=== PATIENT | female | born 1960 | race Caucasian/White ===

== ENCOUNTER 2018-10-31 17:41 | Observation (INO) ==
[2018-10-31] MEDS ORDERED: Naloxone 0.4 MG/ML INJ IVP PRN (22:55)
--- NOTE | 2018-10-31 23:25 | Internal Med History&Physical ---
Date of Encounter: 10/31/18 Time of Encounter: 22:00 Internal Medicine - H&P: HPI Chief complaint: CP Admitted From: Intrahospital Transfer Plans for Post Hospital Care: Home History of present illness: Ms. Gray is a 58 year old female w/PMH of melanoma of the skin, cervical cancer hx, previous HTN (no longer on medications), Crohn's disease, fatty liver, sleep apnea (but not on BiPAP or CPAP), and seasonal allergies presents from [place] [facility] w/CC of chest discomfort that began on Wednesday when she was playing soccer w/granddaughter. Pt. describes discomfort as shooting dull pain across her chest that came on w/and w/o exertion. Pain was intermittent and no alleviating factors. Accompanying sx: SOB. Radiation to central back and left neck. Pain worse on Wednesday than today. Reports last cardiac w/u was an exerci se stress test in 2009. Reports extensive familial hx of CAD. Denies previous OR, stents, nausea, vomiting, diaphoresis, sick contacts, history of PE or DVT, headache, changes in vision, unusual bleeding, abdominal pain, diarrhea, constipation, numbness, tingling, dizziness, lightheadedness, pre-syncope, or syncope. Past Med Surg Social Fam HX - Past Medical History Source: patient, old records reviewed, obtained from family Medical history: cancer (Melanoma of skin and cervical cancer), hypertension (Pr evious HTN - Reports she no longer takes HTN medications), other Additional medical history: Melanoma, cervical cancer, Crohn's disease, sleep apnea, fatty liver disease, seasonal allergies Psychiatric history: no psych history - Past Surgical History Surgical History: appendectomy, breast surgery, cholecystectomy, colectomy, hysterectomy Additional surgical history: Bowel resection x2, breast reduction, laminecty L4, tonsilectomy - Social History Smoking Status: Current every day smoker Packs per day: VAPES - Reports quitting 1.5 PPD of cigarettes in 2012 Smokeless Tobacco Status: No Alcohol use: rarely Drug use: none Current living situation: Home, With Family Activity Level: Independent ambulation Recent Out of Country Travel Within the Last 8 Weeks: No Exposure or Possible Exposure to Illness During Travel: No - Family History Mother Race: Family Member Ethnicity: Non- Living Status: Still Living Hx Family Cardiac Disorders: Yes (OR, cardiac stents x7, HTN) Hx Family Endocrine Disorder: Yes (DM) Hx Family Medical Disorders: Yes (Kidney disease) Brother Race: Family Member Ethnicity: Non- Living Status: Still Living Hx Family Cardiac Disorders: Yes (OR w/ stents) Hx Family Endocrine Disorder: Yes (DM) Father Race: Family Member Ethnicity: Non- Living Status: Age at : 79 Cause of : Endocarditis Hx Family Cardiac Disorders: Yes Hx Family Cancer: Yes (Whipple procedure) Hx Family Medical Disorders: Yes (Genetic disorder-aortic valve dysfunction) Internal Medicine - H&P: Meds Calcium Carbonate/Vitamin D3 [Calcium 1,000 + D3 Caplet] 1 each PO DAILY 10/31/18 [History] Cetirizine HCl [Zyrtec] 10 mg PO DAILY 10/31/18 [History] Cholecalciferol (Vitamin D3) [Vitamin D] 1,000 unit PO DAILY 10/31/18 [History] Magnesium 250 mg PO DAILY 10/31/18 [History] Mesalamine [Lialda] 4.8 gm PO DAILY 10/31/18 [History] Triamcinolone Acetonide [Nasacort] 1 spr NS QDPC PRN 10/31/18 [History] Allergy/AdvReac Type Severity Reaction Status Date / Time No Known Allergies Allergy Verified 10/31/18 15:37 All Systems PM: A 10-system review of systems was performed and is negative for pertinent findings except as documented above in the HPI. - Constitutional Constitutional: as per HPI, no chills, no fever(s), no night sweats - EENT Eyes: no change in vision, no discharge, no pain, no photophobia Ears: no ear discharge, no ear pain, no tinnitus Nose, mouth and throat: no dysphagia, no nasal discharge, no neck pain, no sore throat - Breasts Breasts: as per HPI - Cardiovascular Cardiovascular ROS IM: as per HPI, chest pain, dyspnea, dyspnea on exertion, no diaphoresis, no lightheadedness, no palpitations, no syncope - Respiratory Respiratory: as per HPI, dyspnea, dyspnea on exertion, no cough, no wheezing, no excessive phlegm production - Gastrointestinal Gastrointestinal: as per HPI, no abdominal pain, no diarrhea, no hematemesis, no hematochezia, no melena, no nausea, no vomiting - Genitourinary Genitourinary: no change in urinary stream, no dysuria, no flank pain, no hematuria Menstruation: as per HPI, post hysterectomy (Partial) - Musculoskeletal Musculoskeletal ROS IM: no numbness, no tingling - Integumentary Integumentary IM: no rash, no unusual bruising - Neurological Neurological ROS: as per HPI, no confusion, no convulsions, no focal weakness, no numbness, no tingling, no tremor(s) - Psychiatric Psychiatric: as per HPI - Endocrine Endocrine IM: as per HPI - Hematologic/Lymphatic Hematologic/Lymphatic: no easy bruising - Allergic/Immunologic Allergic/Immunologic: as per HPI - Constitutional Vitals: Temp Pulse Resp BP Pulse Ox 97.4 F L 74 15 134/82 95 10/31/18 19:17 10/31/18 19:17 10/31/18 19:17 10/31/18 19:17 10/31/18 19:17 General appearance: Present: cooperative, mild distress, A&O X 3, pleasant, answers questions appropriately Exam: Patient examined at bedside. Pt. resting in bed and reports no chest discomfort at this time. Pt. states that when the chest discomfort starts, it radiates to the central back as well. No alleviating factors as it comes on w/and w/o exertion. Pt. denies any other complaints at this time. VS at the time: temp 97.7F, HR 79, RR 16, BP 141/85, and SpO2 95% on RA. - Head Head exam: Present: atraumatic, normocephalic - Eye Eye exam: Present: PERRL, conjuntiva pink, sclera anicteric Pupils: Present: PERRL - ENT ENT exam: Present: mucous membranes dry, normal exam - Neck Neck exam general surgery: Present: normal inspection, supple, trachea midline. Absent: lymphadenopathy - Respiratory Respiratory exam: Present: CTAB. Absent: accessory muscle use, rales, rhonchi, wheezes - Cardiovascular Cardiovascular exam: Present: RRR, +S1, +S2. Absent: diastolic murmur, gallop, rubs, systolic murmur - GI/Abdominal GI/Abdominal exam: Present: normal bowel sounds, soft, no peritoneal signs. Absent: distended, tenderness - Rectal Rectal exam: Present: deferred - Additional comments: exam deferred. - Extremities Exam Extremities exam: Present: warm, radial pulses palpable and symmetrical. Absent: calf tenderness, cyanotic, pedal edema - Back Exam Back exam: Present: normal inspection - Neurological Exam Neurological exam: Present: alert, CN II-XII intact, oriented X3, no focal deficits. Absent: pronater drift, facial droop, speech deficit - Psychiatric Psychiatric exam: Present: normal affect, normal mood - Skin Skin exam: Present: dry, intact Internal Med - H&P Results - EKG Data EKG shows normal: sinus rhythm - EKG Data Prior EKG available for review: no EKG comments: 11/01/18 00:34 EKG dated 10/31/18 shows sinus rhythm. - Diagnostic Studies Chest x-ray Additional comments: cc: Eulalio Sethi; Bruce Smith; ~ EXAMINATION: SINGLE XRAY VIEW OF THE CHEST 10/31/2018 4:21 pm COMPARISON: None. HISTORY: ORDERING SYSTEM PROVIDED HISTORY: chest pain FINDINGS: Mediastinum: Normal heart size and mediastinal contours. Calcified right paratracheal lymph node/lymph nodes. Lungs: Normal lung volumes. No pneumothorax or airspace consolidation. Pleura: No pleural effusion or thickening. Musculoskeletal: No acute osseous abnormality. Unremarkable soft tissues. Upper Abdomen: Included upper abdomen is unremarkable. XR/XR chest 1V portable IMPRESSION: No acute findings. Evidence of remote granulomatous disease. D/ / Grant Rooney / Grant Rooney Interpreting Provider: Grant Rooney - Assessment and Plan (1) Chest pain Current Visit: Yes Status: Acute Assessment and plan: Acute chest discomfort that began on Wednesday when she was playing soccer w/granddaughter. Pt. describes discomfort as shooting dull pain across her chest that came on w/and w/o exertion. Pain was intermittent and no alleviating factors. Accompanying sx: SOB. Radiation to central back and left neck. Pain worse on Wednesday than today. Reports last cardiac w/u was an exercise stress test in 2009. Reports extensive familial hx of CAD. Denies previous OR, stents. Familial hx: mother Mi x2, 7 stents, HTN; father aortic valve replacement and congential aortic anomaly; brother 99% blockage and OR. Initial troponin <0.03. Trending. Pt. took ASA at home. 80 mg Lipitor once. SL nitro PRN. Morphine 2 mg IVP Q4HR PRN for CP. Echocardiogram. NPO at midnight for exercise stress test in a.m. if troponins WNL. Consider Cardiology consult if troponins, echocardiogram, and/or stress test results abnormal. Pt. is high risk for cardiac event and further morbidity d/t current CP that presents w/and w/o exertion, previous tobacco use (1.5 PPD) and current vaping, and extensive familial cardiac hx and risk factors. Observation. Qualifiers: Chest pain type: precordial pain Qualified Code(s): R07.2 - Precordial pain (2) SOB (shortness of breath) Current Visit: Yes Status: Acute Assessment and plan: Acute SOB accompanying chest discomfort sx. Pt. denies home O2 use. No COPD or CHF dx. Supplemental O2 w/titration and SpO2 monitoring. (3) Sleep apnea Current Visit: Yes Status: Chronic Assessment and plan: Hx of chronic sleep apnea. Pt. reports dx but does not currently use BiPAP or CPAP. Supplemental O2 w/titration and SpO2 monitoring. Qualifiers: Sleep apnea type: unspecified type Qualified Code(s): G47.30 - Sleep apnea, unspecified (4) Crohns disease Current Visit: Yes Status: Chronic Assessment and plan: Hx of chronic Crohn's disease. Stable and currently not in exacerbation. Monitor. Qualifiers: Gastrointestinal tract location: unspecified location Digestive disease complication type: unspecified complication Qualified Code(s): K50.919 - Crohn's disease, unspecified, with unspecified complications (5) Seasonal allergic rhinitis Current Visit: Yes Status: Chronic Assessment and plan: Hx of chronic seasonal allergies. Continue pts. PO allergy medication. Qualifiers: Allergic rhinitis trigger: other Qualified Code(s): J30.89 - Other allergic rhinitis (6) Cancer Current Visit: Yes Status: Resolved Assessment and plan: Hx of melanoma skin cancer and cervical cancer. Stable. F/u w/PCP as needed as OP. (7) DVT prophylaxis Current Visit: Yes Status: Acute Assessment and plan: Heparin 5,000 units SQ Q8HR for DVT prophylaxis. Monitor pt. for signs of bleeding. - Time Spent With Patient Total time spent is greater than 50% in coordination of care (as documented) at patient's floor/unit and/or counseling patient: Greater than 35 minutes
[2018-10-31] MEDS ORDERED: Isovue-370 500 ML BOTTLE IVP ONE (23:45)
[2018-10-31] MEDS ORDERED: Acetaminophen 325 MG TABLET PO PRN (23:51)
[2018-10-31] MEDS ORDERED: *HR* Promethazine 25 MG/ML VIAL IVP PRN (23:52)
[2018-10-31] MEDS ORDERED: traMADol 50 MG TABLET PO PRN (23:52)
[2018-11-01] MEDS ORDERED: *HR* Morphine 2 MG/ML SYRINGE IVP PRN (01:01)
[2018-11-01] MEDS ORDERED: Nitroglycerin 0.4 MG TAB.SUBL SL PRN (01:01)
[2018-11-01 05:41] LABS: Hematocrit 38.3 % (35.3-44.9); Hemoglobin 12.3 g/dL (11.5-15.4); Mean Corpuscular HGB Conc 32.1 g/dL (31.6-35.5); Mean Corpuscular Hemoglobin 29.6 pg (28.0-33.3); Mean Corpuscular Volume 92.1 fL (83.0-100.0); Mean Platelet Volume 9.5 fL (9.4-12.4); Platelet Count 198 K/mcL (140-400); Red Blood Count 4.16 M/mcL (3.82-4.97); Red Cell Distribution Width 13.1 % (11.5-14.5)
[2018-11-01 05:58] LABS: BUN/Creatinine Ratio 13 (6-26); Blood Urea Nitrogen 9 mg/dL (6-20); Calcium 8.8 mg/dL (8.6-10.3); Carbon Dioxide 24 mEq/L (23-29); Chloride 109 mEq/L (98-107); Chol/HDL Ratio 2.6 (0-4.9); Cholesterol 138 mg/dL (< 200); Glucose 106 mg/dL (70-105); HDL Cholesterol 53 mg/dL (40-59); LDL Cholesterol,Calculated 36 mg/dL (0-99); Osmolality,Calculated 295 (280-300); Potassium 3.8 mEq/L (3.5-5.1); Sodium 143 mEq/L (136-145); Triglycerides 246 mg/dL (< 150); eGFR For Non-African Americans > 60 (> 60)
[2018-11-01 06:10] LABS: Thyroid Stimulating Hormone 1.889 mcIU/mL (0.340-5.600)
[2018-11-01] MEDS: *HR* Heparin 5,000 UNIT/ML VIAL SQ SCH ×2 (06:20→14:12)
[2018-11-01] MEDS ORDERED: Cholecalciferol (D-3) 1,000 UNIT TABLET PO SCH (09:00)
[2018-11-01] MEDS ORDERED: Magnesium Oxide 400 MG TABLET PO SCH (09:00)
[2018-11-01] MEDS ORDERED: Loratadine 10 MG TABLET PO SCH (09:00)
[2018-11-01 11:17] VITALS: BP 138/83
--- NOTE | 2018-11-01 14:35 | Discharge Summary ---
- NOTES TO OUTPATIENT PROVIDER Notes to Outpatient Provider: Presented with chest pain underwent cardiac stress test which was negative for any ischemia or infarct suspect musculoskeletal Orders not resulted at time of discharge: Pending orders 11/01/18 06:11 NM ruben perf SPECT multi [NM] Routine 11/02/18 04:00 Basic Metabolic Panel AM 0400 Complete Blood Count w/o Diff [HEME] AM 0400 11/03/18 04:00 Basic Metabolic Panel AM 0400 Complete Blood Count w/o Diff [HEME] AM 0400 Date of Encounter: 11/01/18 Time of Encounter: 14:35 - Discharge Diagnosis (1) Chest pain Priority: Primary Status: Acute Qualifiers: Chest pain type: precordial pain Qualified Code(s): R07.2 - Precordial pain (2) SOB (shortness of breath) Priority: Secondary Status: Acute (3) Cancer Priority: Secondary Status: Resolved (4) Sleep apnea Priority: Secondary Status: Chronic Qualifiers: Sleep apnea type: unspecified type Qualified Code(s): G47.30 - Sleep apnea, unspecified (5) Crohns disease Priority: Secondary Status: Chronic Qualifiers: Gastrointestinal tract location: unspecified location Digestive disease complication type: unspecified complication Qualified Code(s): K50.919 - Crohn's disease, unspecified, with unspecified complications (6) Seasonal allergic rhinitis Priority: Secondary Status: Chronic Qualifiers: Allergic rhinitis trigger: other Qualified Code(s): J30.89 - Other allergic rhinitis Hospital course: Ms. Gray is a 58 year old female past medical history of melanoma the skin several cancerous previous hypertension and oral medication Crohn's disease by liver sleep apnea [place] BiPAP or oxygen seasonal allergies presented with [facility] with complaints of chest discomfort began on Wednesday when she was playing soccer with her granddaughter. Chest pain was with on exertion. Was intermittent with no relieving factors she has shortness of breath pain radiates to back and left neck. CTA was completed which was a for any PE troponins negative 3 echocardiogram with EF-65% and of a cardiac stress test was negative for any ischemia or infarct. Patient has been pain-free during this admission EKG with no ST-T wave abnormalities advised patient follow-up with primary care provider suspect musculoskeletal. Patient verbalized understanding she is hemodynamically stable and ready for discharge. - Time Spent with Patient Total time spent providing and/or coordinating discharge services: - Discharge Medications Prescriptions: Continued Triamcinolone Acetonide [Nasacort] 1 spr NS QDPC PRN PRN Reason: Allergy Symptoms Magnesium 250 mg PO DAILY Cholecalciferol (Vitamin D3) [Vitamin D3] 1,000 unit PO DAILY Calcium Carbonate/Vitamin D3 [Calcium 1,000 + D3 Caplet] 1 each PO DAILY Cetirizine HCl [Zyrtec] 10 mg PO DAILY Mesalamine [Lialda] 4.8 gm PO DAILY Home Medications: Calcium Carbonate/Vitamin D3 [Calcium 1,000 + D3 Caplet] 1 each PO DAILY 10/31/18 [History] Cetirizine HCl [Zyrtec] 10 mg PO DAILY 10/31/18 [History] Cholecalciferol (Vitamin D3) [Vitamin D3] 1,000 unit PO DAILY 10/31/18 [History] Magnesium 250 mg PO DAILY 10/31/18 [History] Mesalamine [Lialda] 4.8 gm PO DAILY 10/31/18 [History] Triamcinolone Acetonide [Nasacort] 1 spr NS QDPC PRN 10/31/18 [History] Allergies/Adverse Reactions: Allergy/AdvReac Type Severity Reaction Status Date / Time No Known Allergies Allergy Verified 10/31/18 15:37 Date of admission: 10/31/18 18:42 Primary care physician: Bruce Smith Consults: 10/31/18 22:58 Consult to He[facility]orter [CONS] Routine Reason for SW Consult: Please assess patient for possible home needs for post-discharge planning. Discharging clinician: Gretel Easley Anticipated date of discharge: 11/01/18 - Constitutional Vitals: Temp Pulse Resp BP Pulse Ox 97.6 F 74 17 138/83 96 11/01/18 11:16 11/01/18 11:16 11/01/18 11:16 11/01/18 11:16 11/01/18 11:16 General appearance: Present: cooperative, mild distress, A&O X 3, pleasant, answers questions appropriately Exam: Skin: Free of rash and discoloration. Eyes: Sclera is white. There is no discharge from eyes. ENMT: Oral/pharyngeal mucosa is normal in appearance. There is no discharge from nose or ears. Respiratory: Normal breath sounds with no crackles and wheezes bilaterally. CV: Heart is regular with no gallop or murmur. GI: Abdomen is flat and soft with no palpable mass or visceromegaly. : There is no tenderness in patient's flanks bilaterally. Neuro exam: He has good strength in upper and lower extremities. He has normal eye movements. Psychiatric: He has normal affect. His thought process is appropriate to the situation. - Patient Status Disposition: Home, Self-Care Condition: Good Functional capacity at discharge: independent ambulation Overall status at discharge: patient is back to baseline - Discharge Instructions Instructions: Chest Pain (DC) Follow Up With: Bruce Smith DO [Primary Care Provider] - 11/10/18 4:15 pm - Diet and Activity Activity: increase activity as tolerated Diet: advance to your usual diet
== END 2018-11-01 15:07 | disposition home or self-care (01) ==
LOC: 3BNU
PROVIDERS: ADMIT Student in an Organized Health Care Education/Training Program; ATTEND Student in an Organized Health Care Education/Training Program